=== PATIENT | female | born 2000 | race Hispanic/Latino ===

== ENCOUNTER 2023-04-08 08:59 | Emergency (ER) | payer BC, MEDICAID ==
[~2023-04-08] VITALS: Ht 175.3 cm; Wt 70.3 kg
[2023-04-08] MEDS ORDERED: ONDANSETRON 4MG INJ IVP ONE (09:30)
[2023-04-08] MEDS ORDERED: LACTATED RINGERS 1000ML 1,000 ML IV ONE (09:30)
[2023-04-08 09:58] LABS: BASOPHILS # (AUTO) 0.02 K/uL (0.00-0.20); BASOPHILS % (AUTO) 0.4 % (0.0-5.0); EOSINOPHILS # (AUTO) 0.17 K/uL (0.00-0.70); EOSINOPHILS % (AUTO) 3.6 % (0.0-8.0); HEMATOCRIT 37.8 % (36-48); LYMPHOCYTES # (AUTO) 2.7 K/uL (1.0-4.8); LYMPHOCYTES % (AUTO) 56.8 % (21.0-51.0); MEAN CORPUSCULAR HEMOGLOBIN 31.1 pg (27.0-33.0); MEAN CORPUSCULAR HGB CONC 33.9 g/dL (32.0-36.0); MEAN CORPUSCULAR VOLUME 91.7 fL (79-99); MONOCYTES # (AUTO) 0.3 K/uL (0.1-1.0); MONOCYTES % (AUTO) 7.1 % (3.0-13.0); NEUTROPHILS # (AUTO) 1.5 K/uL (1.8-7.7); NEUTROPHILS % (AUTO) 32.1 % (40.0-77.0); PLATELET COUNT (AUTO) 212 K/uL (130-400); RED BLOOD CELL COUNT(AUTO) 4.12 MIL/uL (4.00-5.50); RED CELL DISTRIBUTION WIDTH 11.8 % (11.0-15.5); WHITE BLOOD COUNT (AUTO) 4.8 K/uL (4.8-10.8)
[2023-04-08 10:15] LABS: ALBUMIN 4.1 g/dL (3.5-5.0); BILIRUBIN,TOTAL 0.7 mg/dL (0.2-1.0); CREATININE 0.7 mg/dL (0.5-1.5); POTASSIUM 3.6 mmol/L (3.5-5.1); TOTAL PROTEIN, SERUM 8.1 g/dL (6.0-8.3)
[2023-04-08 10:48] LABS: APPEARANCE,URINE CLEAR (CLEAR); BILIRUBIN,URINE NEGATIVE (NEGATIVE); GLUCOSE, URINE (UA) NEGATIVE (NEGATIVE); KETONES,URINE NEGATIVE (NEGATIVE); LEUKOCYTE ESTERASE ,URINE NEGATIVE Leu/uL (NEGATIVE); NITRATE,URINE NEGATIVE (NEGATIVE); OCCULT BLOOD,URINE NEGATIVE (NEGATIVE); PH,URINE 5.5 (5.0-8.0); PROTEIN,URINE NEGATIVE (NEGATIVE); UROBILINOGEN,URINE 0.2 mg/dL (0.2-1.0)
[2023-04-08 10:56] LABS: ADD UA MICROSCOPIC NO; COLOR,URINE YELLOW (YELLOW)
[2023-04-08 10:59] LABS: HCG,QUALITATIVE URINE NEGATIVE (NEGATIVE)
[2023-04-08] MEDS ORDERED: KETOROLAC 15MG/ML VIAL (15MG/ML) IV ONE (14:00)
[2023-04-08] MEDS ORDERED: IBUP-2070 PO (14:01)
[2023-04-08] MEDS ORDERED: ONDA4TAB10 PO (14:01)
[2023-04-08 14:25] VITALS: BP 122/68; PULSE 81; RESP 18; O2SAT 97
== END 2023-04-08 14:26 | disposition home or self-care (01) ==
LOC: EDH 08:59
DX: S09.90XA Unspecified injury of head, initial encounter (principal); M25.511 Pain in right shoulder; W01.10XA Fall on same level from slipping, tripping and stumbling with subsequent striking against unspecified object, initial encounter; Y93.89 Activity, other specified; Y92.89 Other specified places as the place of occurrence of the external cause; Y99.8 Other external cause status
CPT/HCPCS: 99285; 70450; 96374; 96361; 80053; 85025; 81003; 81025; 36415; 73030; 72125; 93005; J7120; J2405; J1885

== ENCOUNTER 2024-03-08 13:59 | Emergency (ER) | payer BC ==
[~2024-03-08] VITALS: Ht 172.7 cm; Wt 68.9 kg
[~2024-03-08 13:59] MED LIST: IBUP-2070 PO; ONDA-243 PO
[2024-03-08 16:05] LABS: APPEARANCE,URINE CLOUDY (CLEAR); BILIRUBIN,URINE NEGATIVE (NEGATIVE); COLOR,URINE YELLOW (YELLOW); GLUCOSE, URINE (UA) NEGATIVE (NEGATIVE); KETONES,URINE NEGATIVE (NEGATIVE); LEUKOCYTE ESTERASE ,URINE 500 Leu/uL (NEGATIVE); NITRATE,URINE NEGATIVE (NEGATIVE); OCCULT BLOOD,URINE LARGE (NEGATIVE); PH,URINE 7.5 (5.0-8.0); PROTEIN,URINE 30 mg/dL (NEGATIVE); UROBILINOGEN,URINE 0.2 mg/dL (0.2-1.0)
[2024-03-08] MEDS: PHENAZOPYRIDINE HCL 200 MG TABLET PO ONE (16:07)
[2024-03-08] MEDS: ACETAMINOPHEN 500 MG TABLET PO ONE (16:08)
[2024-03-08 16:13] LABS: HCG,QUALITATIVE URINE NEGATIVE (NEGATIVE)
[2024-03-08 16:30] LABS: ADD UA MICROSCOPIC YES
[2024-03-08 16:42] LABS: BACTERIA,URINE FEW /HPF (None Seen); RBC,URINE TNTC /HPF (0-1); SQUAMOUS EPITHELIAL CELL,UR RARE /HPF (0-2); WBC CLUMP MOD /HPF (0-1); WBC,URINE TNTC /HPF (0-1); YEAST,URINE BUDDING FEW /HPF (None Seen)
[2024-03-08] MEDS: CEFTRIAXONE 1G VIAL IVPB ONE (17:34)
[2024-03-08] MEDS: 0.9%NACL 1000ML 1,000 ML IV ONE (17:34)
[2024-03-08] MEDS ORDERED: AMOX1TAB16 PO (18:20)
[2024-03-08] MEDS ORDERED: IBUP-2077 PO (18:20)
[2024-03-08] MEDS ORDERED: PHEN-776 PO (18:20)
[2024-03-08 18:40] VITALS: BP 116/74; PULSE 84; RESP 16; O2SAT 98
== END 2024-03-08 18:45 | disposition home or self-care (01) ==
LOC: EDH 13:59
DX: N30.01 Acute cystitis with hematuria (principal); R10.9 Unspecified abdominal pain; Z79.899 Other long term (current) drug therapy; Z98.890 Other specified postprocedural states
CPT/HCPCS: 99284; 74176; 96374; 96361; 87086; 81001; 81025; J7030; J0696

== ENCOUNTER 2024-07-10 21:48 | Emergency (ER) | payer BC ==
[~2024-07-10] VITALS: Ht 170.2 cm; Wt 68.9 kg
[~2024-07-10 21:48] MED LIST changes: +AMOX1TAB16 PO; +IBUP-2077 PO; +PHEN-776 PO
[2024-07-10 21:49] VITALS: BP 114/70; PULSE 84; RESP 18; TEMP 97
--- NOTE | 2024-07-10 21:52 | NUR ---
UA CUP PROVIDED
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
[2024-07-10 22:15] LABS: APPEARANCE,URINE CLOUDY (CLEAR); BILIRUBIN,URINE NEGATIVE (NEGATIVE); COLOR,URINE YELLOW (YELLOW); GLUCOSE, URINE (UA) NEGATIVE (NEGATIVE); KETONES,URINE 5 mg/dL (NEGATIVE); LEUKOCYTE ESTERASE ,URINE 500 Leu/uL (NEGATIVE); NITRATE,URINE NEGATIVE (NEGATIVE); OCCULT BLOOD,URINE NEGATIVE (NEGATIVE); PROTEIN,URINE 20 mg/dL (NEGATIVE)
[2024-07-10] MEDS: PHENAZOpyridine HCL 200 MG TAB 200 MG TABLET PO ONE (22:17)
[2024-07-10] MEDS: acetaMINOPHEN 500 MG TABLET PO ONE (22:17)
[2024-07-10 22:21] LABS: ADD UA MICROSCOPIC YES; HCG,QUALITATIVE URINE NEGATIVE (NEGATIVE)
[2024-07-10 22:23] LABS: BACTERIA,URINE MANY /HPF (None Seen); MUCUS,URINE FEW LPF (None Seen); SQUAMOUS EPITHELIAL CELL,UR MOD /HPF (0-2); WBC,URINE TNTC /HPF (0-1)
[2024-07-10] MEDS ORDERED: PHEN-847 PO (22:36)
[2024-07-10] MEDS: AMOX/CLAV 875/125MG TAB PO ONE (22:44)
== END 2024-07-10 22:48 | disposition home or self-care (01) ==
LOC: EDH 21:48
DX: N30.01 Acute cystitis with hematuria (principal); R30.0 Dysuria
CPT/HCPCS: 81001; 81025; 87086; 99283

== ENCOUNTER 2025-06-16 01:45 | Emergency (ER) | payer BC ==
[~2025-06-16] VITALS: Ht 172.7 cm; Wt 73.9 kg
[~2025-06-16 01:45] MED LIST changes: +IBUP-1492 PO; -IBUP-2070 PO; +PHEN-847 PO
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
[2025-06-16 02:25] LABS: RAPID GROUP A STREP negative (NEGATIVE)
[2025-06-16 02:32] LABS: SARS-CoV-2, RNA, NAAT NEGATIVE SARS CoV-2 (NEGATIVE)
[2025-06-16 02:35] LABS: INFLUENZA TYPE A Negative For Type A (NEGATIVE); INFLUENZA TYPE B Negative For Type B (NEGATIVE)
[2025-06-16 03:02] VITALS: BP 132/87; PULSE 87; RESP 17; TEMP 98.5; O2SAT 98
== END 2025-06-16 03:10 | disposition home or self-care (01) ==
LOC: EDH 01:45
DX: J02.8 Acute pharyngitis due to other specified organisms (principal); B97.89 Other viral agents as the cause of diseases classified elsewhere; Z20.822 Contact with and (suspected) exposure to COVID-19; Z79.899 Other long term (current) drug therapy; Z87.19 Personal history of other diseases of the digestive system; Z98.890 Other specified postprocedural states
CPT/HCPCS: 87635; 87804; 87880; 99283